=== PATIENT | female | born 1960 | race Caucasian/White ===

== ENCOUNTER 2016-08-09 06:41 | Day surgery (SDC) | payer OTHER ==
[2016-08-02 13:16] VITALS: BMI 47.0
--- NOTE | 2016-08-02 13:58 | PAT Medication Instructions ---
Service Date Aug 02, 2016. Current Home Medication List Albuterol Hfa (Ventolin Hfa), 2-4 PUFFS INH Q6H PRN for PRN Amlodipine (Norvasc), 5 MG PO QAM Cranberry-Vitamin C-Vitamin E (Cranberry), 1 TAB PO QPM Furosemide (Lasix), 20 MG PO PRN Hydrochlorothiazide (Hctz), 25 MG PO QAM Ibuprofen (Advil), 800 MG PO PRN Lorazepam (Ativan), 0.5 MG PO TID PRN for PRN Meclizine Hcl (Meclizine Hcl), 1 TAB PO TID PRN for RN Metformin Hcl (Glucophage), 500 MG PO BID Simvastatin (Zocor), 20 MG PO HS Medication Instructions For Your Scheduled Surgery Ibuprofen (Advil), 800 MG PO PRN (patient can check with surgeon for instructions) Meclizine Hcl (Meclizine Hcl), 1 TAB PO TID PRN for RN (not taking currently) - Hold the following medications starting today 08/02/16: Cranberry-Vitamin C-Vitamin E (Cranberry), 1 TAB PO QPM - Hold the following medications 48 hours prior to surgery: Metformin Hcl (Glucophage), 500 MG PO BID - Hold the following medications the morning of surgery: Hydrochlorothiazide (Hctz), 25 MG PO QAM Furosemide (Lasix), 20 MG PO PRN - Take the following medications the morning of surgery with a sip of water: Lorazepam (Ativan), 0.5 MG PO TID PRN for PRN Amlodipine (Norvasc), 5 MG PO QAM Albuterol Hfa (Ventolin Hfa), 2-4 PUFFS INH Q6H PRN for PRN (use if needed/ bring with you to hospital on day of surgery) - Take the following medications as scheduled the night before surgery: Simvastatin (Zocor), 20 MG PO HS Lorazepam (Ativan), 0.5 MG PO TID PRN for PRN Albuterol Hfa (Ventolin Hfa), 2-4 PUFFS INH Q6H PRN for PRN If you have any questions please call us at [phone] or [phone] ( [place]) or [phone]
[2016-08-02 14:47] LABS: BASO % 0.2 %; BASO ABS # 0.02 K/uL (0-0.2); COMPLETE YES; EOS % 1.8 %; HEMATOCRIT 49.3 % (37-47); IG% 0.3 %; LYMPH % 19.1 %; LYMPH ABS # 2.31 K/uL (1.2-3.4); MEAN CORPUSCULAR HEMOGLOBIN 30.9 pg (25-34); MEAN CORPUSCULAR HGB CONC 31.8 g/dl (32-36); MEAN PLATELET VOLUME 11.5 fL (7.4-10.4); MONO % 6.1 %; NEUT % 72.5 %; PLATELET COUNT 326 K/uL (130-400); RED BLOOD COUNT 5.08 M/uL (4.2-5.4); WHITE BLOOD COUNT 12.08 K/uL (4.8-10.8)
[2016-08-02 15:08] LABS: BUN/CREATININE RATIO 12.9 (10-20); CALCIUM 9.1 mg/dl (8.5-10.1); CREATININE 0.8 mg/dl (0.60-1.20); POTASSIUM 4.1 mmol/L (3.5-5.1)
[~2016-08-09] VITALS: Ht 172.7 cm; Wt 139.6 kg
[~2016-08-09 06:41] MED LIST: AMLO-110 PO; CEFAZOLIN 3000 MG/65 ML D5W IV SCH; CRAN1CAP15 PO; FURO-85 PO; GLC/500 PO; HYDR25TA4 PO; IBUP-1050 PO; LACTATED RINGER'S 1000ML 1,000 ML IV SCH; LORA-741 PO; MECL1TAB42 PO; SIMV20TA2 PO; VNTHFA/IN INH
[2016-08-09 06:48] VITALS: BP 145/89; PULSE 89; TEMP 37; O2SAT 95; Ht 172.7 cm; Wt 139.6 kg
[2016-08-09] MEDS ORDERED: ATROPINE SULFATE 0.1 MG/ML 5ML SYR IV PRN ×2 (08:00→10:15)
[2016-08-09] MEDS ORDERED: LABETALOL HCL IV 5 MG/ML 20ML IV PRN ×2 (08:00→10:15)
[2016-08-09] MEDS ORDERED: ONDANSETRON INJ 2 MG/ML 2 ML VIAL IV PRN ×3 (08:00→10:15)
--- NOTE | 2016-08-09 08:16 | History & Physical Bridge Note ---
H&P Re-Evaluation Bridge Note: I have examined the patient, reviewed the History & Physical and in the interval since the performance of the History & Physical I have noted the following changes of clinical significance: No changes noted
[2016-08-09] MEDS ORDERED: MIDAZOLAM HCL 1 MG/ML 2ML VIAL ONE (08:17)
[2016-08-09] MEDS ORDERED: FENTANYL CITRATE INJ 50 MCG/1 ML 2 ML VIAL ONE ×2 (08:17→09:26)
[2016-08-09] MEDS ORDERED: LIDOCAINE HCL 1% 20 ML VIAL ONE (08:20)
[2016-08-09] MEDS ORDERED: BUPIVACAINE 0.5 % 5 MG/1 ML MPF 30ML VIAL ONE (08:20)
[2016-08-09] MEDS ORDERED: SODIUM CHLORIDE 0.9% 1000ML 1,000 ML IV SCH (08:30)
[2016-08-09] MEDS ORDERED: PROPOFOL IV EMULSION 10 MG/ML 20 ML VIAL IV ONE (09:17)
[2016-08-09] MEDS ORDERED: LIDOCAINE HCL 2% 2 ML VIAL (20MG/ML) ONE (09:18)
[2016-08-09] MEDS ORDERED: NEOSTIGMINE METHYLSULFATE 5 MG/5 ML SYR ONE (09:18)
[2016-08-09] MEDS ORDERED: ROCURONIUM BROMIDE 10 MG/ML 5 ML VIAL ONE (09:18)
[2016-08-09] MEDS ORDERED: GLYCOPYRROLATE INJ 0.2 MG/ML VIAL ONE (09:18)
[2016-08-09] MEDS ORDERED: ONDANSETRON INJ 2 MG/ML 2 ML VIAL ONE (09:18)
[2016-08-09] MEDS ORDERED: ALBUTEROL HFA INHALER 8.5 GM INH ONE (09:24)
[2016-08-09] MEDS ORDERED: PHENYLEPHRINE HCL INJ 10 MG/ML VIAL ONE (09:33)
[2016-08-09] MEDS ORDERED: FENTANYL CITRATE INJ 50 MCG/1 ML 2 ML VIAL IV PRN (10:15)
--- NOTE | 2016-08-09 10:18 | [facility] Post Operative Brief Note ---
Immediate Operative Summary Operative Date Aug 09, 2016. Pre-Operative Diagnosis umbilical hernia Post-Operative Diagnosis umbilical hernia Procedure(s) Performed Umbilical Hernia Repair Surgeon Dr Hema Zavala Loss Prevention/Safety District Manager Surgeon(s) Steven GERBERS Estimated Blood Loss 10ML Findings See dictation Specimens A. hernia sac B. Omentum Drains None Anesthesia General Complication(s) None Disposition Recovery Room / PACU
--- NOTE | 2016-08-09 10:23 | Discharge Instructions ---
Discharge Instructions Date of Service Aug 09, 2016. Admission Reason for Admission: Umbilibal Hernia Discharge Discharge Diagnosis / Problem: Same Discharge Goals Goal(s): Decrease discomfort Activity Recommendations Activity Limitations: per Instructions/Follow-up section Lifting Limitations: no more than 10 pounds (for 6 weeks) Shower/Bathe: tomorrow . Instructions / Follow-Up Instructions / Follow-Up ACTIVITY RECOMMENDATIONS: * Walk as much as possible. * No heavy lifting (>10 lbs.) for 2 weeks. SPECIAL CARE INSTRUCTIONS: * Ice to hernia repair site on and off until bedtime tonight. * May shower in 24 hours. Let water run over area and pat dry. * Leave steri strips on for one week. * Call the surgeon's office with any questions or concerns - (ex. temperature higher than 101 degrees F, excessive bleeding or pain). MEDICATIONS: Resume previous medications unless instructed otherwise by your surgeon. * Ibuprofen 600 mg every 6 hours with food * Analgesics already at home FOLLOW UP VISIT: If not already scheduled, please call the office to schedule a two week follow- up appointment. Office number Current Hospital Diet Patient's current hospital diet: Discharge Diet Recommended Diet: Regular Diet Procedures Procedures Performed: Umbilical Hernia Repair Pending Studies Studies pending at discharge: no Medical Emergencies . Who to Call and When: Medical Emergencies: If at any time you feel your situation is an emergency, please call 911 immediately. . Non-Emergent Contact Non-Emergency issues call your: Primary Care Provider, Surgeon Call Non-Emergent contact if: your pain is worsening, wound has increased redness, wound has increased pain . "Provider Documentation" section prepared by Hema Zavala. . VTE Core Measure Inpt VTE Proph given/why not?: Treatment not indicated
[2016-08-09] MEDS ORDERED: OXYCODONE/ACETAMINOPHEN 5-325 TAB PO PRN (10:30)
[2016-08-09] MEDS ORDERED: ALBUTEROL 0.083% NEBU SOLN 3 ML VIAL INH STA (10:45)
[2016-08-09] MEDS: FENTANYL CITRATE INJ 50 MCG/1 ML 2 ML VIAL IV PRN ×3 (10:46→11:26)
[2016-08-09 11:00] VITALS: PULSE 92; O2SAT 93
[2016-08-09 11:50] VITALS: BP 121/64; PULSE 92; TEMP 36.7; O2SAT 92
--- NOTE | 2016-08-09 12:08 | Anesthesiology Progress Note ---
Anesthesia Post Op Note Date & Time Aug 09, 2016 at 12:07 Vital Signs Pain Intensity: 4 Vital Signs Past 12 Hours Date Time Temp Pulse Resp B/P (MAP) Pulse Ox O2 Delivery O2 Flow Rate FiO2 08/09/16 11:41 138/65 08/09/16 11:36 125/75 08/09/16 11:32 92 16 93 08/09/16 11:32 92 16 08/09/16 11:31 36.6 08/09/16 11:31 116/66 08/09/16 11:30 85 16 93 08/09/16 11:30 86 16 08/09/16 11:26 131/64 08/09/16 11:25 93 16 08/09/16 11:25 94 16 93 08/09/16 11:24 83 13 08/09/16 11:24 83 13 92 08/09/16 11:21 126/59 08/09/16 11:19 90 16 08/09/16 11:19 90 16 92 08/09/16 11:16 137/65 08/09/16 11:14 90 16 08/09/16 11:14 89 16 89 08/09/16 11:13 90 16 87 08/09/16 11:13 90 16 08/09/16 11:11 132/60 08/09/16 11:08 87 16 08/09/16 11:08 87 16 95 08/09/16 11:06 144/77 08/09/16 11:03 89 13 08/09/16 11:03 89 13 94 08/09/16 11:01 150/71 08/09/16 11:00 92 18 93 Mask 6.0 08/09/16 10:58 93 24 08/09/16 10:58 94 24 93 08/09/16 10:56 134/79 08/09/16 10:53 94 22 93 08/09/16 10:53 94 22 08/09/16 10:51 161/67 08/09/16 10:48 97 32 92 08/09/16 10:48 97 32 08/09/16 10:47 96 31 08/09/16 10:47 96 31 94 08/09/16 10:46 161/68 08/09/16 10:42 93 23 95 08/09/16 10:42 93 23 08/09/16 10:41 152/66 6/12/17 10:37 95 29 95 08/09/16 10:37 95 29 08/09/16 10:36 158/71 08/09/16 10:35 94 29 96 08/09/16 10:35 94 29 08/09/16 10:31 174/84 08/09/16 10:30 97 22 90 08/09/16 10:30 98 22 08/09/16 10:26 179/91 08/09/16 10:25 36.5 96 18 179/91 92 Mask 13 08/09/16 10:25 95 31 90 08/09/16 10:25 96 31 08/09/16 06:48 37 89 145/89 (107) 95 Room Air Notes Mental Status: alert / awake / arousable, participated in evaluation Pt Amnestic to Procedure: Yes Nausea / Vomiting: adequately controlled Pain: adequately controlled Airway Patency, RR, SpO2: stable & adequate BP & HR: stable & adequate Hydration State: stable & adequate Anesthetic Complications: no major complications apparent
[2016-08-09 12:20] VITALS: BP 129/70; PULSE 88; TEMP 36.5; O2SAT 93
[2016-08-09] MEDS ORDERED: IBUPROFEN 600 MG TAB PO SCH (14:00)
--- NOTE | 2016-08-09 17:23 | OPERATIVE REPORT ---
DATE OF OPERATION: 08/09/2016 PREOPERATIVE DIAGNOSIS: Ventral/umbilical hernia. POSTOPERATIVE DIAGNOSIS: Same. PROCEDURE: Repair of ventral/umbilical hernia. SURGEON: Dr. Hema Zavala. FINDINGS: The patient had a ventral hernia that was more beneath her transverse incision below the umbilicus used for her laparoscopy. This did not appear to be a classic umbilical hernia. The hernia sac was size of a baseball. It contained a large amount of omentum. There was no bowel within the sac. There were no other defects identified. The hernia defect measured 2.5 cm. TECHNIQUE: The patient was given a general anesthetic and the area was prepped and draped in the usual sterile fashion. The area of the hernia had been previously marked. A transverse incision was made below the umbilicus incorporating the scar from the previous incision, carried down through the skin and subcutaneous tissue, where the hernia sac was easily identified. The hernia sac was then off the overlying skin and away from the surrounding subcutaneous tissue using blunt, sharp and cautery dissection where appropriate. This dissection was easily carried down on the left side and I was able to dissect it off the anterior surface of the fascia and identify the edge of the fascial defect on that side. I then was able to work inferiorly and towards the right and eventually superiorly freeing the sac down to the fascial defect edge. I was able to open the hernia sac. I could not reduce the large amount of omentum completely. I then removed some of the omental tissue using a clamp-clamp divide and ligate technique using 2-0 Vicryl ties. The remainder of the omentum was able to be reduced back into the abdomen with ease. I then was able to further dissect the sac freely off the anterior surface of the fascia. Once that was completed, I was then able to establish a plane between the peritoneum and the fascial edge around the entire circumference of the defect. I was then able to undermine the fascia for a distance of at least 4 cm around the entire circumference of the defect using cautery and blunt dissection. A 12.5-cm round Surgimesh was then placed in a preperitoneal/retrofascial position. It was secured to the undersurface of the fascia using 0 PDS horizontal mattress sutures. The fascia was closed with a running #1 PDS. Hemostasis was obtained in the subcutaneous tissue using cautery. The subcutaneous tissue was approximated using interrupted 2-0 Vicryl. The superficial subcutaneous tissue was closed with running 3-0 Vicryl and skin was closed with 4-0 Monocryl in a running subcuticular fashion. The skin was anesthetized with 0.5% Marcaine. The skin was cleansed, dried, benzoin placed, and Steri-Strips applied. A cotton ball placed in the umbilicus and an Op-Site over that. ESTIMATED BLOOD: 10 mL. Sponge, needle and instrument counts were correct prior to closure. The patient tolerated the surgical procedure without complication and was transferred to recovery. I attest to the content of the Intraoperative Record and any orders documented therein. Any exception s are noted below.
[2016-08-12] MEDS ORDERED: AMOX1TAB43 PO (10:37)
== END 2016-08-09 12:44 | disposition home or self-care (01) ==
LOC: C.ACU 06:41
PROVIDERS: ATTEND Surgery
DX: K42.9 Umbilical hernia without obstruction or gangrene (principal); E11.9 Type 2 diabetes mellitus without complications; I10 Essential (primary) hypertension; J44.9 Chronic obstructive pulmonary disease, unspecified; Z88.2 Allergy status to sulfonamides; Z90.89 Acquired absence of other organs; Z88.1 Allergy status to other antibiotic agents; F17.200 Nicotine dependence, unspecified, uncomplicated; Z68.42 Body mass index [BMI] 45.0-49.9, adult; E66.01 Morbid (severe) obesity due to excess calories

== ENCOUNTER 2016-08-10 00:42 | Inpatient (IN) | payer OTHER ==
[2016-08-10] VITALS (10 sets, daily range): BP systolic 104–143; BP diastolic 55–90; PULSE 77–96; TEMP 36.7–36.9; O2SAT 92–95; Ht 172.7 cm; Wt 143.7 kg
[~2016-08-10] VITALS: Ht 172.7 cm; Wt 143.7 kg
[~2016-08-10 00:42] MED LIST changes: -CEFAZOLIN 3000 MG/65 ML D5W IV SCH; -LACTATED RINGER'S 1000ML 1,000 ML IV SCH
[2016-08-10] MEDS ORDERED: ALBUT/IPRATROP 3MG/0.5MG NEB 3 ML VIAL INH STA (00:46)
[2016-08-10] MEDS ORDERED: SODIUM CHLORIDE 0.9% 1000ML 1,000 ML IV STA ×2 (00:46)
[2016-08-10] MEDS ORDERED: DEXAMETHASONE SOD INJ 10 MG/ML VIAL IV ONE (01:00)
[2016-08-10] MEDS ORDERED: DAPTOMYCIN IV STA (01:21)
[2016-08-10] MEDS ORDERED: SODIUM CHLORIDE 0.9% IV STA (01:21)
[2016-08-10] MEDS ORDERED: PIPERACILLIN/TAZOBACTAM 4.5 GM/100ML D5W IV STA (01:21)
[2016-08-10 01:24] LABS: BASO % 0.1 %; BASO ABS # 0.02 K/uL (0-0.2); COMPLETE YES; EOS % 0.4 %; HEMATOCRIT 45.8 % (37-47); IG% 0.2 %; LYMPH % 11.1 %; LYMPH ABS # 1.83 K/uL (1.2-3.4); MEAN CORPUSCULAR HGB CONC 31.2 g/dl (32-36); MEAN PLATELET VOLUME 10.9 fL (7.4-10.4); MONO % 5.8 %; NEUT % 82.4 %; PLATELET COUNT 304 K/uL (130-400); RED BLOOD COUNT 4.77 M/uL (4.2-5.4); WHITE BLOOD COUNT 16.56 K/uL (4.8-10.8)
[2016-08-10 01:45] LABS: ALT/SGPT 32 U/L (12-78); BLOOD UREA NITROGEN 13 mg/dl (7-18); BUN/CREATININE RATIO 13.3 (10-20); CALCIUM 8.5 mg/dl (8.5-10.1); CARBON DIOXIDE 27 mmol/L (21-32); CHLORIDE 102 mmol/L (98-107); CREATININE 0.97 mg/dl (0.60-1.20); GLUCOSE 165 mg/dl (70-99); POTASSIUM 4.4 mmol/L (3.5-5.1); SODIUM 138 mmol/L (136-145)
[2016-08-10 01:46] LABS: VEN BLD GAS O2 SATURATION 83.2 %; VEN BLOOD GAS BASE EXCESS 3.4 mmol/L
[2016-08-10 01:49] LABS: ALB/GLOB RATIO 0.8 (0.9-2); ALKALINE PHOSPHATASE 97 U/L (45-117); AST/SGOT 36 U/L (15-37)
[2016-08-10 01:57] LABS: URINE APPEARANCE CLOUDY (CLEAR); URINE COLOR ORANGE; URINE EPITHELIAL CELL AUTO >30 /lpf (0-5); URINE NITRITE POS (NEG); URINE PH 5.5 (4.5-7.5); URINE SPECIFIC GRAVITY 1.033 (1.000-1.030); UROBILINOGEN NEG (NEG); ZZUR CULT IF INDIC CLEAN CATCH YES
[2016-08-10 02:04] LABS: MANUAL MICROSCOPIC REQUIRED? NO; REVIEW REQ? YES; URINE BILIRUBIN 1+ (NEG)
--- NOTE | 2016-08-10 03:06 | EMERGENCY ROOM VISIT NOTE ---
History First contact with patient: 00:41 Chief Complaint: SHORTNESS OF BREATH Stated Complaint: SHORT OF BREATH Nursing Triage Summary: Pt brought in by EMS. Pt complains of fever and SOB this evening. Pt had umbilical hernia repaired by Dr Zavala this am. History of Present Illness The patient is a 56 year old female who presents to the Emergency Room with complaints of cough, shortness of breath and fever for the past few hours. Patient had hernia repair earlier today. Patient is a smoker for 40+ years. Patient states no complications with the surgery. Patient took Tylenol a few hours ago. Patient denies chest pain, vomiting, diarrhea, urinary symptoms, sore throat, headache, numbness, tingling. Review of Systems See HPI for pertinent positives & negatives. A total of 10 systems reviewed and were otherwise negative. Past Medical/Surgical History Diabetes, hypertension, hyperlipidemia, hernia repair Social History Smoking Status: Current Every Day Smoker Drug Use: none Marital Status: Housing Status: lives with family Current/Historical Medications Scheduled Amlodipine (Norvasc), 5 MG PO QAM Cranberry-Vitamin C-Vitamin E (Cranberry), 1 TAB PO QPM Furosemide (Lasix), 20 MG PO PRN Hydrochlorothiazide (Hctz), 25 MG PO QAM Ibuprofen (Advil), 800 MG PO PRN Metformin Hcl (Glucophage), 500 MG PO BID Simvastatin (Zocor), 20 MG PO HS Scheduled PRN Albuterol Hfa (Ventolin Hfa), 2-4 PUFFS INH Q6H PRN for PRN Lorazepam (Ativan), 0.5 MG PO TID PRN for PRN Meclizine Hcl (Meclizine Hcl), 1 TAB PO TID PRN for RN Allergies Coded Allergies: Erythromycin (Unverified Allergy, Unknown, HIVES, 08/10/16) Naproxen (Unverified Allergy, Unknown, SEVERE HIVES,THROAT TIGHTENING, ) Sulfa Antibiotics (Unverified Allergy, Unknown, RASH, 08/10/16) Physical Exam Vital Signs Date Time Temp Pulse Resp B/P (MAP) Pulse Ox O2 Delivery O2 Flow Rate FiO2 08/10/16 02:42 82 18 116/72 96 Room Air 08/10/16 00:55 93 Room Air 08/10/16 00:52 77 08/10/16 00:48 87 Room Air 08/10/16 00:42 36.8 87 24 109/81 87 Room Air Physical Exam VITALS: Vitals are noted on the nurse's note and reviewed by myself. Vital signs hypoxic GENERAL: Pleasant female struggling to speak in full sentences SKIN: The skin was without rashes, erythema, edema, or bruising. There is no tenting of the skin. Capillary reflex less than 2 seconds. HEAD: Normocephalic atraumatic. EARS: External auditory canals clear, tympanic membranes pearly royal without erythema or effusion bilaterally. EYES: Pupils equal round and reactive to light and accommodation. Conjunctivae without injection, sclerae without icterus. Extraocular movements intact. NOSE: Patent, turbinates without inflammation or discharge. MOUTH: Mucous membranes moist. Pharynx without erythema or exudate. Uvula midline. Airway patent. Tongue does not deviate. NECK: Supple without nuchal rigidity. No lymphadenopathy. No thyromegaly. Cervical spine is nontender. No JVD. HEART: Regular rate and rhythm without murmurs gallops or rubs. LUNGS: Mild diffuse end expiratory wheezes, without rales or rhonchi. No dullness to percussion. No retractions or accessory muscle use. ABDOMEN: Positive bowel sounds x 4. Normal tympanic percussion. Soft, umbilical incision intact with out signs of infection, nontender, without masses or organomegaly. Mendoza sign negative. No guarding or rebound tenderness. MUSCULOSKELETAL: No muscle atrophy, erythema, or edema noted. NEURO: Patient was alert and oriented to person place and time. Normal sensation to light and sharp touch. No focal neurological deficits. Medical Decision & Procedures Laboratory Results 08/10/16 01:00 Red Blood Count 4.77, Mean Corpuscular Volume 96.0, Mean Corpuscular Hemoglobin 30.0, Mean Corpuscular Hemoglobin Concent 31.2, Mean Platelet Volume 10.9, Neutrophils (%) (Auto) 82.4, Lymphocytes (%) (Auto) 11.1, Monocytes (%) (Auto) 5.8, Eosinophils (%) (Auto) 0.4, Basophils (%) (Auto) 0.1, Neutrophils # (Auto) 13.64, Lymphocytes # (Auto) 1.83, Monocytes # (Auto) 0.96, Eosinophils # (Auto) 0.07, Basophils # (Auto) 0.02 08/10/16 01:00 Test 08/10/16 01:00 08/10/16 01:13 08/10/16 01:27 08/10/16 01:28 White Blood Count 16.56 K/uL (4.8-10.8) Red Blood Count 4.77 M/uL (4.2-5.4) Hemoglobin 14.3 g/dL (12.0-16.0) Hematocrit 45.8 % (37-47) Mean Corpuscular Volume 96.0 fL (80-100) Mean Corpuscular Hemoglobin 30.0 pg (25-34) Mean Corpuscular Hemoglobin Concent 31.2 g/dl (32-36) Platelet Count 304 K/uL (130-400) Mean Platelet Volume 10.9 fL (7.4-10.4) Neutrophils (%) (Auto) 82.4 % Lymphocytes (%) (Auto) 11.1 % Monocytes (%) (Auto) 5.8 % Eosinophils (%) (Auto) 0.4 % Basophils (%) (Auto) 0.1 % Neutrophils # (Auto) 13.64 K/uL (1.4-6.5) Lymphocytes # (Auto) 1.83 K/uL (1.2-3.4) Monocytes # (Auto) 0.96 K/uL (0.11-0.59) Eosinophils # (Auto) 0.07 K/uL (0-0.5) Basophils # (Auto) 0.02 K/uL (0-0.2) RDW Standard Deviation 51.6 fL (36.4-46.3) RDW Coefficient of Variation 14.6 % (11.5-14.5) Immature Granulocyte % (Auto) 0.2 % Immature Granulocyte # (Auto) 0.04 K/uL (0.00-0.02) Anion Gap 9.0 mmol/L (3-11) Est Creatinine Clear Calc Drug Dose 97.9 ml/min Estimated GFR () 75.7 Estimated GFR (Non- 65.3 BUN/Creatinine Ratio 13.3 (10-20) Calcium Level 8.5 mg/dl (8.5-10.1) Total Bilirubin 0.6 mg/dl (0.2-1) Aspartate Amino Transf (AST/SGOT) 36 U/L (15-37) Alanine Aminotransferase (ALT/SGPT) 32 U/L (12-78) Alkaline Phosphatase 97 U/L (45-117) Troponin I < 0.015 ng/ml (0-0.045) Total Protein 7.0 gm/dl (6.4-8.2) Albumin 3.0 gm/dl (3.4-5.0) Globulin 4.0 gm/dl (2.5-4.0) Albumin/Globulin Ratio 0.8 (0.9-2) Procalcitonin < 0.05 ng/ml (0-0.5) Bedside Lactic Acid Venous 2.89 mmol/L (0.90-1.70) Bedside Troponin I < 0.030 ng/ml (0-0.045) Venous Blood pH 7.48 (7.36-7.41) Venous Blood Partial Pressure CO2 37 mmHg (38.0-50.0) Venous Blood Partial Pressure O2 42 mmHg Venous Blood HCO3 27 mmol/L Venous Blood Oxygen Saturation 83.2 % Venous Blood Base Excess 3.4 mmol/L Test 08/10/16 01:43 Urine Color ORANGE Urine Appearance CLOUDY (CLEAR) Urine pH 5.5 (4.5-7.5) Urine Specific Sulphur 1.033 (1.000-1.030) Urine Protein 1+ (NEG) Urine Glucose (UA) TRACE (NEG) Urine Ketones TRACE (NEG) Urine Occult Blood NEG (NEG) Urine Nitrite POS (NEG) Urine Bilirubin 1+ (NEG) Urine Urobilinogen NEG (NEG) Urine Leukocyte Esterase TRACE (NEG) Urine WBC (Auto) 10-30 /hpf (0-5) Urine RBC (Auto) 0-4 /hpf (0-4) Urine Hyaline Casts (Auto) 10-30 /lpf (0-5) Urine Epithelial Cells (Auto) >30 /lpf (0-5) Urine Bacteria (Auto) 1+ (NEG) Urine Crystals CALCIUM OXALATE (NONE Urine Pathogenic Casts /lpf (0) Medications Administered Medications (Trade) Dose Ordered Sig/Jess Route Start Time Stop Time Status Last Admin Dose Admin Albuterol/ Ipratropium (Duoneb) 3 ml NOW STAT INH 08/10/16 00:46 08/10/16 00:49 DC 08/10/16 01:25 3 ML Sodium Chloride 1,000 ml @ 999 mls/hr Q1H1M STAT IV 08/10/16 00:46 08/10/16 01:46 DC 08/10/16 00:46 999 MLS/HR Sodium Chloride 1,000 ml @ 125 mls/hr Q8H STAT IV 08/10/16 00:46 08/10/16 08:45 08/10/16 00:46 125 MLS/HR Dexamethasone Sodium Phosphate (Decadron Inj) 10 mg NOW ONCE IV 08/10/16 01:00 08/10/16 01:01 DC 08/10/16 01:25 10 MG Piperacillin Sod/ Tazobactam Sod (Zosyn Iv) 4.5 gm NOW STAT IV 08/10/16 01:21 08/10/16 01:23 DC 08/10/16 02:25 4.5 GM Daptomycin 862 mg/ Sodium Chloride 67.24 ml @ 100 mls/hr NOW STAT IV 08/10/16 01:21 08/10/16 02:01 DC 08/10/16 01:41 100 MLS/HR ED Course Prior records/ancillary studies reviewed. Triage Nursing notes reviewed. Additional history obtained from family. The patient's history was concerning for fever. Differential diagnosis: Etiologies such as postsurgical complication, atelectasis, viral syndrome, otitis, pharyngitis, pneumonia, influenza, meningitis, urinary tract infection, sepsis, bacteremia, as well as others were entertained. Physical examination: Patient is alert and working to breathe ER treatment provided: IV fluids, Nebulizer, steroids, Zosyn, daptomycin On reassessment the patient felt better. Diagnostics interpreted by me: ECG: Normal sinus, normal intervals, no acute ST-T wave changes. Impression normal sinus rhythm interpreted by myself The labs revealed leukocytosis, elevated lactic acid. Urine concerning for infection and sent for culture Imaging studies: Chest x-ray with no acute consolidation, pneumothorax or free air per my interpretation Consultation: A consultation was placed with hospitalist, Dr. Lofton. The case was discussed and diagnostics were reviewed. The patient was evaluated in the ER for further treatment. This appears to be consistent with fever with UTI who is postop day 1. Patient will be evaluated by medicine for possible admission. She is a leukocytosis and elevated lactic acid. Urine was concerning for infection and sent for culture. She was started on antibiotics. She'll be evaluated by medicine. By the evaluation outlined above emergent etiologies such as otitis, pharyngitis, pneumonia, meningitis, as well as others were deemed relatively unlikely. The pt informed about the findings as listed above. All questions were answered and pleased with the treatment. Case reviewed with my attending Medical Decision As above Impression Primary Impression: SIRS (systemic inflammatory response syndrome) Additional Impressions: UTI (urinary tract infection) Fever Hypoxemia Departure Information Dispostion Being Evaluated By Hospitalist Condition FAIR Referrals Dez Horton M.D. (PCP) Patient Instructions My [facility] Problem Qualifiers
[2016-08-10] MEDS ORDERED: ACETAMINOPHEN 325 MG TAB PO PRN (03:45)
[2016-08-10] MEDS ORDERED: POLYETHYLENE (MIRALAX) 17 GM PACK PO PRN (03:45)
[2016-08-10] MEDS ORDERED: MAGNESIUM HYDROXIDE SUSP 30 ML UDC PO PRN (03:45)
[2016-08-10] MEDS ORDERED: ALUMINUM/MAGNESIUM/SIMETH (MAALOX MAX) 30 ML UDC PO PRN (03:45)
[2016-08-10] MEDS ORDERED: IBUPROFEN 200 MG TAB PO PRN (03:45)
[2016-08-10] MEDS ORDERED: LORAZEPAM 0.5 MG TAB PO PRN (03:45)
[2016-08-10] MEDS ORDERED: ONDANSETRON INJ 2 MG/ML 2 ML VIAL IV PRN (03:45)
--- NOTE | 2016-08-10 05:17 | History and Physical ---
History & Physical Date & Time of Service: Aug 10, 2016 at 04:57 Chief Complaint: Short Of Breath Primary Care Physician: Dez Horton M.D. History of Present Illness Source: patient, family, hospital records This is a 56 year old female with a PMH of DM2, tobacco use disorder, HTN, HLD - was in the hospital for day surgery for an inguinal hernia repair on August 09 - she went home, took some Percocet, went to sleep, when she woke up in the afternoon/evening time, she felt chills. States she became really short of breath and could not take a deep breath in, so she presented to the ER. Denies nausea/vomiting. Denies chest pain; denies leg pain. Denies palpitations. On presentation, labs performed showing high white count; CXR - no acute findings; UA dirty - was given IVFs, antibiotics, and nebulizers and she felt better. Social History Smoking Status: Current Every Day Smoker Drug Use: none Marital Status: Allergies Coded Allergies: Erythromycin (Unverified Allergy, Unknown, HIVES, 08/10/16) Naproxen (Unverified Allergy, Unknown, SEVERE HIVES,THROAT TIGHTENING, ) Sulfa Antibiotics (Unverified Allergy, Unknown, RASH, 08/10/16) Home Medications Scheduled Amlodipine (Norvasc), 5 MG PO QAM Cranberry-Vitamin C-Vitamin E (Cranberry), 1 TAB PO QPM Furosemide (Lasix), 20 MG PO PRN Hydrochlorothiazide (Hctz), 25 MG PO QAM Ibuprofen (Advil), 800 MG PO PRN Metformin Hcl (Glucophage), 500 MG PO BID Simvastatin (Zocor), 20 MG PO HS Scheduled PRN Albuterol Hfa (Ventolin Hfa), 2-4 PUFFS INH Q6H PRN for PRN Lorazepam (Ativan), 0.5 MG PO TID PRN for PRN Meclizine Hcl (Meclizine Hcl), 1 TAB PO TID PRN for general foreman of Systems Constitutional: + fever, + chills, + weakness, + fatigue, No sweats, No weight loss Respiratory: + shortness of breath, No cough, No sputum, No wheezing, No dyspnea on exertion, No hemoptysis Cardiovascular: No chest pain, No edema, No palpitations Abdomen: + pain (recent surgery), No nausea, No vomiting, No diarrhea Musculoskeletal: No joint pain, No muscle pain, No swelling, No calf pain Genitourinary - Female: No dysuria, No urinary frequency, No urinary urgency, No urinary incontinence, No urinary retention, No hematuria Neurologic: + weakness, No paralysis, No numbness/tingling, No vertigo, No balance problems Psychiatric: No depression symptoms, No anxiety Hematologic / Lymphatic: No abnormal bleeding/bruising Integumentary: No rash Allergic / Immunologic: No environmental allergies, No seasonal allergies Physical Exam Vital Signs Date Time Temp Pulse Resp B/P (MAP) Pulse Ox O2 Delivery O2 Flow Rate FiO2 08/10/16 04:30 98 20 134/85 96 Room Air 08/10/16 04:28 97 08/10/16 02:42 82 18 116/72 96 Room Air 08/10/16 00:55 93 Room Air 08/10/16 00:52 77 08/10/16 00:48 87 Room Air 08/10/16 00:42 36.8 87 24 109/81 87 Room Air General Appearance: no apparent distress, + obese Head: normocephalic, atraumatic Eyes: normal inspection ENT: hearing grossly normal Respiratory/Chest: chest non-tender, lungs clear, normal breath sounds, no respiratory distress, no accessory muscle use Cardiovascular: regular rate, rhythm, no edema, no gallop, no JVD, no murmur, normal peripheral pulses Abdomen/GI: normal bowel sounds, soft, + tenderness Extremities/Musculoskelatal: normal capillary refill, no pedal edema Neurologic/Psych: no motor/sensory deficits, alert, normal mood/affect Skin: normal color Lymphatic: no adenopathy Diagnostics Laboratory Results Results Past 24 Hours Test 08/10/16 01:00 08/10/16 01:13 08/10/16 01:27 08/10/16 01:28 Range/Units White Blood Count 16.56 4.8-10.8 K/uL Red Blood Count 4.77 4.2-5.4 M/uL Hemoglobin 14.3 12.0-16.0 g/dL Hematocrit 45.8 37-47 % Mean Corpuscular Volume 96.0 80-100 fL Mean Corpuscular Hemoglobin 30.0 25-34 pg Mean Corpuscular Hemoglobin Concent 31.2 32-36 g/dl Platelet Count 304 130-400 K/uL Mean Platelet Volume 10.9 7.4-10.4 fL Neutrophils (%) (Auto) 82.4 % Lymphocytes (%) (Auto) 11.1 % Monocytes (%) (Auto) 5.8 % Eosinophils (%) (Auto) 0.4 % Basophils (%) (Auto) 0.1 % Neutrophils # (Auto) 13.64 1.4-6.5 K/uL Lymphocytes # (Auto) 1.83 1.2-3.4 K/uL Monocytes # (Auto) 0.96 0.11-0.59 K/uL Eosinophils # (Auto) 0.07 0-0.5 K/uL Basophils # (Auto) 0.02 0-0.2 K/uL RDW Standard Deviation 51.6 36.4-46.3 fL RDW Coefficient of Variation 14.6 11.5-14.5 % Immature Granulocyte % (Auto) 0.2 % Immature Granulocyte # (Auto) 0.04 0.00-0.02 K/uL Sodium Level 138 136-145 mmol/L Potassium Level 4.4 3.5-5.1 mmol/L Chloride Level 102 98-107 mmol/L Carbon Dioxide Level 27 21-32 mmol/L Anion Gap 9.0 3-11 mmol/L Blood Urea Nitrogen 13 7-18 mg/dl Creatinine 0.97 0.60-1.20 mg/dl Est Creatinine Clear Calc Drug Dose 97.9 ml/min Estimated GFR () 75.7 Estimated GFR (Non- 65.3 BUN/Creatinine Ratio 13.3 10-20 Random Glucose 165 70-99 mg/dl Calcium Level 8.5 8.5-10.1 mg/dl Total Bilirubin 0.6 0.2-1 mg/dl Aspartate Amino Transf (AST/SGOT) 36 15-37 U/L Alanine Aminotransferase (ALT/SGPT) 32 12-78 U/L Alkaline Phosphatase 97 45-117 U/L Troponin I < 0.015 0-0.045 ng/ml Total Protein 7.0 6.4-8.2 gm/dl Albumin 3.0 3.4-5.0 gm/dl Globulin 4.0 2.5-4.0 gm/dl Albumin/Globulin Ratio 0.8 0.9-2 Procalcitonin < 0.05 0-0.5 ng/ml Bedside Lactic Acid Venous 2.89 0.90-1.70 mmol/L Bedside Troponin I < 0.030 0-0.045 ng/ml Venous Blood pH 7.48 7.36-7.41 Venous Blood Partial Pressure CO2 37 38.0-50.0 mmHg Venous Blood Partial Pressure O2 42 mmHg Venous Blood HCO3 27 mmol/L Venous Blood Oxygen Saturation 83.2 % Venous Blood Base Excess 3.4 mmol/L Test 08/10/16 01:43 Range/Units Urine Color ORANGE Urine Appearance CLOUDY CLEAR Urine pH 5.5 4.5-7.5 Urine Specific [place] 1.033 1.000-1.030 Urine Protein 1+ NEG Urine Glucose (UA) TRACE NEG Urine Ketones TRACE NEG Urine Occult Blood NEG NEG Urine Nitrite POS NEG Urine Bilirubin 1+ NEG Urine Urobilinogen NEG NEG Urine Leukocyte Esterase TRACE NEG Urine WBC (Auto) 10-30 0-5 /hpf Urine RBC (Auto) 0-4 0-4 /hpf Urine Hyaline Casts (Auto) 10-30 0-5 /lpf Urine Epithelial Cells (Auto) >30 0-5 /lpf Urine Bacteria (Auto) 1+ NEG Urine Crystals CALCIUM OXALATE NONE PRSENT Urine Pathogenic Casts 0 /lpf Microbiology Results 08/10/16 Blood Culture, Received Pending 08/10/16 Blood Culture, Received Pending 08/10/16 Urine Culture, Received Pending CXR normal Normal EKG Impression Assessment and Plan This is a 56 year old female with a PMH of DM2, tobacco use disorder, HTN, HLD and recent umbilical hernia repair presented with fevers/chills, shortness of breath Urinary Tract Infection patient presents with fevers/chills leukocytosis - likely both stress and infectious related UA = dirty culture pending started on Rocephin Shortness of Breath/Hypoxia in the setting of Tobacco Use Disorder CXR - no infection noted hypoxia on presentation, but now saturating well without supplemental oxygen possibly related to atelectasis? was given nebulizer treatment, which improved symptoms will add incentive spirometry - recent surgery has been smoking for 40 years; up to 1PPD no official diagnosis of COPD; will need PFTs as outpatient when stable for now, no steroids, no wheezing noted on exam Recent Umbilical Hernia Repair wound looks fine, no erythema doing well post-operatively, monitor for pain DM2 hold oral agents Ha1c = 6.5% monitor BSGs HTN blood pressure stable continue Norvasc DVT ppx subq heparin FULL CODE VTE Prophylaxis VTE Risk Assessment Done? Y/N: Yes Risk Level: Moderate
[2016-08-10] MEDS ORDERED: CEFTRIAXONE SOD INJ 1 GM in DEXTROSE 5% ADD-VANTAGE 50ML 50 ML IV SCH (06:00)
--- NOTE | 2016-08-10 06:48 | DIAGNOSTIC IMAGING REPORT ---
CHEST ONE VIEW PORTABLE CLINICAL HISTORY: Sepsis dyspnea COMPARISON STUDY: No previous studies for comparison. FINDINGS: The bones soft tissues and hemidiaphragms are normal. The cardiomediastinal silhouette is normal. The lungs are clear. The pulmonary vasculature is normal. IMPRESSION: Negative chest. Electronically signed by: Hema Wills M.D. 08/10/2016 6:47 AM Dictated Date/Time: 08/10/2016 6:46 AM
[2016-08-10 07:06] LABS: HEMATOCRIT 44.6 % (37-47); MEAN CORPUSCULAR HGB CONC 31.6 g/dl (32-36); MEAN PLATELET VOLUME 11.2 fL (7.4-10.4); PLATELET COUNT 257 K/uL (130-400); RED BLOOD COUNT 4.55 M/uL (4.2-5.4); WHITE BLOOD COUNT 15.08 K/uL (4.8-10.8)
[2016-08-10 07:13] LABS: PROTHROMBIN TIME (PATIENT) 10.9 SECONDS (9.0-12.0)
[2016-08-10] MEDS: ALBUT/IPRATROP 3MG/0.5MG NEB 3 ML VIAL INH SCH ×4 (07:22→19:12)
[2016-08-10] MEDS: SODIUM CHLORIDE 0.9% 1000ML 1,000 ML IV SCH ×3 (07:44→21:15)
[2016-08-10] MEDS ORDERED: DEXTROSE 50% 50 ML SYR IV PRN (09:00)
[2016-08-10] MEDS ORDERED: GLUCOSE 40% GEL 15 GM TUBE PO PRN (09:00)
[2016-08-10] MEDS ORDERED: GLUCOSE 10 TABS/TUBE PO PRN (09:00)
[2016-08-10] MEDS ORDERED: GLUCAGON FOR INJ 1 MG VIAL SQ PRN (09:00)
[2016-08-10] MEDS: AMLODIPINE BESYLATE 5 MG TAB PO SCH (09:04)
[2016-08-10] MEDS: HEPARIN SOD 5000 UNIT/0.5 ML CARP SQ SCH ×3 (09:11→23:43)
[2016-08-10] MEDS: POLYETHYLENE (MIRALAX) 17 GM PACK PO SCH (10:02)
[2016-08-10] MEDS: INSULIN ASPART 100 UNITS/ML 3 ML PEN SC SCH ×3 (13:19→21:31)
[2016-08-10] MEDS ORDERED: PIPERACILL/TAZOBAC IV 4.5 GM in DEXTROSE 5% 100ML IV ONE (17:00)
[2016-08-10] MEDS ORDERED: PIPERACILL/TAZOBAC CONSULT ACTIVE PRN (17:00)
--- NOTE | 2016-08-10 17:00 | Progress Note ---
Internal Med Progress Note Date of Service: Aug 10, 2016. Provider Documentation: SUBJECTIVE: feels fine , afebrile , no nausea , no abdominal pain tolerating diet denies of any symptom wants to know when she can go home OBJECTIVE: Vital Signs-as noted below Exam: General- no sign of distress Eyes-sclera non icteric Lungs-CTA Heart-regular S1/s2 Abdomen-soft, umbilical hernia repair site healing well , no drainage , minimum tenderness , bowel sound diminished Extremities-no lower ext edema Neuro-no focal neurological deficit Lab data as noted below. ASSESSMENT & PLAN: SEPSIS : possible due to Urinary Tract Infection met criteria on admission -fever /elevated lactic acid /leukocytosis UA grossly positive no evidence of infection in recent umbilical hernia repair Cxray shows no evidence of infection blood and urine culture ordered -report pending pt is continued with IV fluids , remains stable hemodynamically Lactic acid remains persistently elevated > 2 Abx changed to Zosyn will order CT abdomen /pelvis to R/o other source of infection as pt had recent hernia repair Recent Umbilical Hernia Repair s/p Umbilical Hernia repair on Tuesday08/09/[address] Zavala wound looks fine, no erythema D/w Surgery Dr Zavala -pt is evaluated by him on the floor pt had very simple uncomplicated hernia repair Laparoscopically no evidence of infection or post op complication recommend to cont ABx IVF CT abdomen /pelvis with contrast ordered for ongoing lactic acidosis Shortness of Breath/Hypoxia in the setting of Tobacco Use Disorder CXR - no infection noted no symptom at present in room air was given nebulizer treatment, which improved symptoms will add incentive spirometry - recent surgery has been smoking for 40 years; up to 1PPD no official diagnosis of COPD; will need PFTs as outpatient when stable DM2 hold oral agents-Metformin ( persistent lactic acidosis ) Ha1c = 6.5% monitor BSGs HTN blood pressure stable continue Norvasc DVT ppx subq heparin DISPOSITION Discharge home when medically stable Vital Signs: Date Time Temp Pulse Resp B/P (MAP) Pulse Ox O2 Delivery O2 Flow Rate FiO2 08/10/16 15:30 Room Air 08/10/16 15:21 36.8 94 18 104/55 (71) 93 Room Air 08/10/16 14:23 81 16 95 Room Air 08/10/16 11:34 77 16 94 Room Air 08/10/16 09:28 93 Room Air 08/10/16 09:03 90 118/77 (91) 08/10/16 07:56 36.9 96 16 134/90 (105) 93 Room Air 08/10/16 07:40 Room Air 08/10/16 07:22 77 16 92 Nasal Cannula 2.0 08/10/16 05:23 36.7 94 20 138/84 Nasal Cannula 2.0 08/10/16 04:30 98 20 134/85 96 Room Air 08/10/16 04:28 97 08/10/16 02:42 82 18 116/72 96 Room Air 08/10/16 00:55 93 Room Air 08/10/16 00:52 77 08/10/16 00:48 87 Room Air 08/10/16 00:42 36.8 87 24 109/81 87 Room Air Lab Results: Results Past 24 Hours Test 08/10/16 01:00 08/10/16 01:13 08/10/16 01:27 08/10/16 01:28 Range/Units White Blood Count 16.56 4.8-10.8 K/uL Red Blood Count 4.77 4.2-5.4 M/uL Hemoglobin 14.3 12.0-16.0 g/dL Hematocrit 45.8 37-47 % Mean Corpuscular Volume 96.0 80-100 fL Mean Corpuscular Hemoglobin 30.0 25-34 pg Mean Corpuscular Hemoglobin Concent 31.2 32-36 g/dl Platelet Count 304 130-400 K/uL Mean Platelet Volume 10.9 7.4-10.4 fL Neutrophils (%) (Auto) 82.4 % Lymphocytes (%) (Auto) 11.1 % Monocytes (%) (Auto) 5.8 % Eosinophils (%) (Auto) 0.4 % Basophils (%) (Auto) 0.1 % Neutrophils # (Auto) 13.64 1.4-6.5 K/uL Lymphocytes # (Auto) 1.83 1.2-3.4 K/uL Monocytes # (Auto) 0.96 0.11-0.59 K/uL Eosinophils # (Auto) 0.07 0-0.5 K/uL Basophils # (Auto) 0.02 0-0.2 K/uL RDW Standard Deviation 51.6 36.4-46.3 fL RDW Coefficient of Variation 14.6 11.5-14.5 % Immature Granulocyte % (Auto) 0.2 % Immature Granulocyte # (Auto) 0.04 0.00-0.02 K/uL Sodium Level 138 136-145 mmol/L Potassium Level 4.4 3.5-5.1 mmol/L Chloride Level 102 98-107 mmol/L Carbon Dioxide Level 27 21-32 mmol/L Anion Gap 9.0 3-11 mmol/L Blood Urea Nitrogen 13 7-18 mg/dl Creatinine 0.97 0.60-1.20 mg/dl Est Creatinine Clear Calc Drug Dose 97.9 ml/min Estimated GFR () 75.7 Estimated GFR (Non- 65.3 BUN/Creatinine Ratio 13.3 10-20 Random Glucose 165 70-99 mg/dl Calcium Level 8.5 8.5-10.1 mg/dl Total Bilirubin 0.6 0.2-1 mg/dl Aspartate Amino Transf (AST/SGOT) 36 15-37 U/L Alanine Aminotransferase (ALT/SGPT) 32 12-78 U/L Alkaline Phosphatase 97 45-117 U/L Troponin I < 0.015 0-0.045 ng/ml Total Protein 7.0 6.4-8.2 gm/dl Albumin 3.0 3.4-5.0 gm/dl Globulin 4.0 2.5-4.0 gm/dl Albumin/Globulin Ratio 0.8 0.9-2 Procalcitonin < 0.05 0-0.5 ng/ml Bedside Lactic Acid Venous 2.89 0.90-1.70 mmol/L Bedside Troponin I < 0.030 0-0.045 ng/ml Venous Blood pH 7.48 7.36-7.41 Venous Blood Partial Pressure CO2 37 38.0-50.0 mmHg Venous Blood Partial Pressure O2 42 mmHg Venous Blood HCO3 27 mmol/L Venous Blood Oxygen Saturation 83.2 % Venous Blood Base Excess 3.4 mmol/L Test 08/10/16 01:43 08/10/16 06:56 08/10/16 07:53 08/10/16 11:58 Range/Units Urine Color ORANGE Urine Appearance CLOUDY CLEAR Urine pH 5.5 4.5-7.5 Urine Specific [place] 1.033 1.000-1.030 Urine Protein 1+ NEG Urine Glucose (UA) TRACE NEG Urine Ketones TRACE NEG Urine Occult Blood NEG NEG Urine Nitrite POS NEG Urine Bilirubin 1+ NEG Urine Urobilinogen NEG NEG Urine Leukocyte Esterase TRACE NEG Urine WBC (Auto) 10-30 0-5 /hpf Urine RBC (Auto) 0-4 0-4 /hpf Urine Hyaline Casts (Auto) 10-30 0-5 /lpf Urine Epithelial Cells (Auto) >30 0-5 /lpf Urine Bacteria (Auto) 1+ NEG Urine Crystals CALCIUM OXALATE NONE PRSENT Urine Pathogenic Casts 0 /lpf White Blood Count 15.08 4.8-10.8 K/uL Red Blood Count 4.55 4.2-5.4 M/uL Hemoglobin 14.1 12.0-16.0 g/dL Hematocrit 44.6 37-47 % Mean Corpuscular Volume 98.0 80-100 fL Mean Corpuscular Hemoglobin 31.0 25-34 pg Mean Corpuscular Hemoglobin Concent 31.6 32-36 g/dl RDW Standard Deviation 52.8 36.4-46.3 fL RDW Coefficient of Variation 14.7 11.5-14.5 % Platelet Count 257 130-400 K/uL Mean Platelet Volume 11.2 7.4-10.4 fL Prothrombin Time 10.9 9.0-12.0 SECONDS Prothromb Time International Ratio 1.0 0.9-1.1 Lactic Acid Level 2.5 0.4-2.0 mmol/L Bedside Glucose 231 214 70-90 mg/dl Test 08/10/16 14:50 Range/Units Lactic Acid Level 2.1 0.4-2.0 mmol/L Microbiology Results 08/10/16 Blood Culture, Received Pending 08/10/16 Blood Culture, Received Pending 08/10/16 Urine Culture, Received Pending
[2016-08-10] MEDS ORDERED: BISACODYL 5 MG TABEC PO SCH (17:30)
[2016-08-10] MEDS ORDERED: OPTIRAY 320 IV PRN (17:45)
[2016-08-10] MEDS ORDERED: PIPERACILL/TAZOBAC IV 3.375 GM in DEXTROSE 5% 100ML 100 ML IV SCH (18:00)
--- NOTE | 2016-08-10 18:15 | DIAGNOSTIC IMAGING REPORT ---
CT ABD/PELVIS IV CONTRAST ONLY CLINICAL HISTORY: Fever. Elevated lactic acid. Recent hernia surgery. COMPARISON STUDY: None. TECHNIQUE: Following the IV administration of 119 mL of Optiray-320, CT scan of the abdomen and pelvis was performed from the lung bases to the proximal femurs. Images are reviewed in the axial, sagittal, and coronal planes. IV contrast was administered without complication. CT DOSE: 1149.95 mGycm FINDINGS: Lower chest: There are bibasal atelectatic changes present. Liver: There is hepatic steatosis. No focal masses are visualized. The portal vein appears patent. The liver is enlarged measuring 25 cm. Gallbladder: Unremarkable. Spleen: Normal in size and attenuation. Pancreas: Unremarkable. Adrenal glands: There is mild adrenal gland thickening. Kidneys: There is symmetric renal cortical enhancement. The kidneys are normal in size without hydronephrosis. Bowel: There are no transition zones indicate bowel obstruction. There is no evidence of acute diverticulitis. The appendix is not visualized with certainty. There are no findings to indicate acute appendicitis. Peritoneum: There is no intraperitoneal free air or abdominal ascites. There are postsurgical changes involving the anterior abdominal wall. There is air and fluid present within the anterior abdominal wall, likely postsurgical. There is a tiny droplet of air posterior to the rectus sheath, also likely postsurgical. There is mild infiltration of the fat posterior to the right the sheath in the midline, likely postsurgical. Vasculature: The abdominal aorta is normal in course and caliber. Adenopathy: None. Pelvic viscera: The bladder, and pelvic viscera are unremarkable. Skeletal structures: No destructive osseous lesions are seen. IMPRESSION: 1. Small amount of gas and fluid within the anterior abdominal wall. Infiltration of the fat posterior to the rectus sheath in the midline with a small air bubble. Given the history of recent surgery, these findings are likely postoperative. 2. No evidence of bowel obstruction. No evidence of free air 3. No evidence of acute diverticulitis. No evidence of acute appendicitis 4. Hepatic steatosis. Hepatomegaly. Electronically signed by: Lorenzo Mays M.D. 08/10/2016 6:13 PM Dictated Date/Time: 08/10/2016 6:08 PM
[2016-08-10] MEDS: SENNA 8.6 MG TAB PO SCH (21:15)
[2016-08-10] MEDS: DOCUSATE SODIUM 100 MG CAP PO SCH (21:15)
[2016-08-10] MEDS: SIMVASTATIN 20 MG TAB PO SCH (21:16)
[2016-08-10] MEDS ORDERED: PIPERACILL/TAZOBAC IV 4.5 GM in DEXTROSE 5% 100ML IV SCH (22:00)
[2016-08-11] VITALS (7 sets, daily range): BP systolic 123–148; BP diastolic 81–84; PULSE 64–83; TEMP 36.7–36.9; O2SAT 91–97
[2016-08-11] MEDS: SODIUM CHLORIDE 0.9% 1000ML 1,000 ML IV SCH (03:35)
[2016-08-11] MEDS: PIPERACILL/TAZOBAC IV 4.5 GM in DEXTROSE 5% 100ML IV SCH ×3 (03:56→19:34)
[2016-08-11 06:16] LABS: MEAN CELL VOLUME 98.1 fL (80-100); MEAN CORPUSCULAR HEMOGLOBIN 31.1 pg (25-34); MEAN CORPUSCULAR HGB CONC 31.7 g/dl (32-36); MEAN PLATELET VOLUME 11.1 fL (7.4-10.4); PLATELET COUNT 260 K/uL (130-400); RED BLOOD COUNT 4.28 M/uL (4.2-5.4); WHITE BLOOD COUNT 12.94 K/uL (4.8-10.8)
[2016-08-11] MEDS: ALBUT/IPRATROP 3MG/0.5MG NEB 3 ML VIAL INH SCH ×4 (07:51→19:45)
--- NOTE | 2016-08-11 08:14 | Discharge Instructions ---
Discharge Instructions Date of Service Aug 11, 2016. Admission Reason for Admission: Fever, Uti Discharge Discharge Diagnosis / Problem: SEPSIS /UTI Discharge Goals Goal(s): Decrease discomfort, Diagnostic testing, Therapeutic intervention Activity Recommendations Activity Limitations: resume your previous activity . Instructions / Follow-Up Instructions / Follow-Up HOSPITAL FOLLOW UP ON Tuesday08/16/16 @ 9: [address] Clifford ZIMMERMAN MD [facility] POST SURGERY FOLLOW UP ON 08/25/2016 @ 1:[address] Hema Zavala MD General Surgery, [facility] LAB WORK : CBC ON Tuesday08/16/16 Current Hospital Diet Patient's current hospital diet: Diabetes Type 2 Diet Discharge Diet Recommended Diet: Diabetes Type 2 Diet Pending Studies Studies pending at discharge: yes List of pending studies: LAB WORK : CBC ON Tuesday08/16/16 Medical Emergencies . Who to Call and When: Medical Emergencies: If at any time you feel your situation is an emergency, please call 911 immediately. . Non-Emergent Contact Non-Emergency issues call your: Primary Care Provider . . "Provider Documentation" section prepared by Adelaide Duarte. . VTE Core Measure Inpt VTE Proph given/why not?: Unfractionated heparin SQ
--- NOTE | 2016-08-11 08:20 | Progress Note ---
Internal Med Progress Note Date of Service: Aug 11, 2016. Provider Documentation: SUBJECTIVE: had uneventful night no fever or chills minimum pain on surgical umbilical hernia site feels fine hoping to get discharged today able to pass gas no bowel movement yet OBJECTIVE: Vital Signs-as noted below Exam: General- no sign of distress Eyes-sclera non icteric Lungs-CTA Heart-regular S1/s2 Abdomen-soft, umbilical hernia repair site healing well , no drainage , minimum tenderness , bowel sound active Extremities-no lower ext edema Neuro-no focal neurological deficit Lab data as noted below. ASSESSMENT & PLAN: SEPSIS : possible due to Urinary Tract Infection met criteria on admission -fever /elevated lactic acid /leukocytosis UA grossly positive no evidence of infection in recent umbilical hernia repair Cxray shows no evidence of infection blood culture -no growth ; urine culture ordered -report pending Lactic acid level normalized 1.2 today Leukocytosis improved to 12 K D/c IV Abx changed to Zosyn : ID eval requested CT abdomen /pelvis : shows post surgical changes , no evidence of infection or post surgical complication Recent Umbilical Hernia Repair s/p Umbilical Hernia repair on Tuesday08/09/[address] Zavala wound looks fine, no erythema D/w Surgery Dr Zavala -pt is evaluated by him on the floor pt had very simple uncomplicated hernia repair Laparoscopically no evidence of infection or post op complication recommend to cont ABx for another 24 hrs till WBC normalizes CT abdomen /pelvis with contrast : IMPRESSION: 1. Small amount of gas and fluid within the anterior abdominal wall. Infiltration of the fat posterior to the rectus sheath in the midline with a small air bubble. Given the history of recent surgery, these findings are likely postoperative. 2. No evidence of bowel obstruction. No evidence of free air 3. No evidence of acute diverticulitis. No evidence of acute appendicitis 4. Hepatic steatosis. Hepatomegaly. Shortness of Breath/Hypoxia in the setting of Tobacco Use Disorder resolved , no symptom CXR - no infection noted no symptom at present DM2 hold oral agents-Metformin Ha1c = 6.5% monitor BSGs HTN blood pressure stable continue Norvasc DVT ppx subq heparin pt is asked to ambulate DISPOSITION possible Discharge home tomorrow Vital Signs: Date Time Temp Pulse Resp B/P (MAP) Pulse Ox O2 Delivery O2 Flow Rate FiO2 08/11/16 07:51 64 16 93 Room Air 08/11/16 07:25 36.7 64 16 123/84 (97) 93 Nasal Cannula 08/11/16 07:25 Room Air 08/10/16 23:30 Room Air 08/10/16 23:19 36.7 81 16 143/81 (101) 93 Room Air 08/10/16 19:12 80 16 95 Room Air 08/10/16 15:30 Room Air 08/10/16 15:21 36.8 94 18 104/55 (71) 93 Room Air 08/10/16 14:23 81 16 95 Room Air 08/10/16 11:34 77 16 94 Room Air 08/10/16 09:28 93 Room Air 08/10/16 09:03 90 118/77 (91) Lab Results: Results Past 24 Hours Test 08/10/16 11:58 08/10/16 14:50 08/10/16 17:03 08/10/16 20:38 Range/Units Bedside Glucose 214 156 173 70-90 mg/dl Lactic Acid Level 2.1 0.4-2.0 mmol/L Test 08/10/16 22:00 08/11/16 06:03 Range/Units Lactic Acid Level 2.2 1.2 0.4-2.0 mmol/L White Blood Count 12.94 4.8-10.8 K/uL Red Blood Count 4.28 4.2-5.4 M/uL Hemoglobin 13.3 12.0-16.0 g/dL Hematocrit 42.0 37-47 % Mean Corpuscular Volume 98.1 80-100 fL Mean Corpuscular Hemoglobin 31.1 25-34 pg Mean Corpuscular Hemoglobin Concent 31.7 32-36 g/dl RDW Standard Deviation 53.1 36.4-46.3 fL RDW Coefficient of Variation 14.8 11.5-14.5 % Platelet Count 260 130-400 K/uL Mean Platelet Volume 11.1 7.4-10.4 fL
[2016-08-11] MEDS: INSULIN ASPART 100 UNITS/ML 3 ML PEN SC SCH ×4 (08:57→21:16)
[2016-08-11] MEDS: AMLODIPINE BESYLATE 5 MG TAB PO SCH (08:58)
[2016-08-11] MEDS: HEPARIN SOD 5000 UNIT/0.5 ML CARP SQ SCH ×3 (08:58→23:53)
[2016-08-11] MEDS: DOCUSATE SODIUM 100 MG CAP PO SCH ×2 (08:58→21:09)
[2016-08-11] MEDS: POLYETHYLENE (MIRALAX) 17 GM PACK PO SCH (08:58)
--- NOTE | 2016-08-11 13:38 | Medical Consult ---
Consultation Date of Consultation: Aug 11, 2016. Attending Physician: Adelaide Duarte M.D. Reason for Consultation: Sepsis History of Present Illness Patient is a 56-year-old female with history of multiple back problems, diabetes mellitus type 2, and umbilical hernia repair on 08/09/2016. Following her umbilical hernia repair, the patient went home and went to bed, but she woke up with a fever later that night and presented to the emergency department for evaluation. The patient states that she was also experiencing a cough, shortness of breath, and abdominal pain prior to admission. Upon admission, the patient's white blood cell count was 16.56. Her lactic acid was 2.89. Throughout the day yesterday, her lactic acid continued to be above 2. Eight finally decreased today and was 1.2. She did have blood cultures drawn which are showing no growth. Her urine culture is showing no growth. Her urinalysis did show a 1+ bacteria, calcium oxalate crystals, positive nitrite, trace leukocyte esterase, and 10-30 white blood cells. She did have a chest x-ray completed which showed no acute process. An abdominal/pelvic CT scan showed a small amount of gas and fluid within the anterior abdominal wall along with infiltration of the fat posterior to the rectus sheath in the midline with a small air bubble, consistent with postoperative changes. She denies urinary symptoms, calf pain, or continued fever. The patient does continue to have abdominal tenderness of the mid epigastric and mid lower abdomen. She states that she does have history of urinary tract infection in the past, but has not had 1 recently. She is currently on IV Zosyn and feeling better. Past Medical/Surgical History Medical Problems: (1) Fever Status: Acute (2) Hypoxemia Status: Acute (3) SIRS (systemic inflammatory response syndrome) Status: Acute (4) UTI (urinary tract infection) Status: Acute Surgical Hx: Umbilical Hernia repair Family History Noncontributory Social History Smoking Status: Current Every Day Smoker Drug Use: none Marital Status: Housing Status: lives with family Allergies Coded Allergies: Naproxen (Verified Allergy, Severe, SEVERE HIVES,THROAT TIGHTENING, ) Erythromycin (Verified Allergy, Intermediate, HIVES, 08/10/16) Sulfa Antibiotics (Verified Allergy, Intermediate, RASH, 08/10/16) Home Medications Reported Home Medications Medications Dose Route/Sig Max Daily Dose Days Date Category Cranberry (Cranberry-Vitamin C-Vitamin E) 1 Cap Cap 1 Tab PO QPM 08/02/16 Reported Advil (Ibuprofen) 200 Mg Tab 800 Mg PO PRN 08/02/16 Reported Lasix (Furosemide) 20 Mg Tab 20 Mg PO PRN 08/02/16 Reported Meclizine Hcl 25 Mg Tab 1 Tab PO TID PRN 10 08/02/16 Reported Ventolin Hfa (Albuterol) 200 Puffs/13407 Mcg Aers 2-4 Puffs INH Q6H PRN 08/02/16 Reported Ativan (Lorazepam) 0.5 Mg Tab 0.5 Mg PO TID PRN 08/02/16 Reported Norvasc (Amlodipine Besylate) 5 Mg Tab 5 Mg PO QAM 08/02/16 Reported Hctz (Hydrochlorothiazide) 25 Mg Tab 25 Mg PO QAM 08/02/16 Reported Zocor (Simvastatin) 20 Mg Tab 20 Mg PO HS 08/02/16 Reported Glucophage (Metformin Hcl) 500 Mg Tab 500 Mg PO BID 08/02/16 Reported Current Inpatient Medications Current Inpatient Medications Medications (Trade) Dose Ordered Sig/Jess Route Start Time Stop Time Status Last Admin Dose Admin Heparin Sodium (Porcine) (Heparin Sq 5000 Unit/0.5ml) 5,000 unit Q8H SQ 08/10/16 08:00 09/09/16 07:59 08/11/16 08:58 5,000 UNIT Acetaminophen (Tylenol Tab) 650 mg Q4H PRN PO 08/10/16 03:45 09/09/16 03:44 Al Hydrox/Mg Hydrox/Simethicone (Maalox Max Susp) 15 ml Q4H PRN PO 08/10/16 03:45 09/09/16 03:44 Magnesium Hydroxide (Milk Of Magnesia Susp) 30 ml Q6H PRN PO 08/10/16 03:45 09/09/16 03:44 Ondansetron HCl (Zofran Inj) 4 mg Q6H PRN IV 08/10/16 03:45 09/09/16 03:44 Amlodipine Besylate (Norvasc Tab) 5 mg QAM PO 08/10/16 09:00 09/09/16 08:59 08/11/16 08:58 5 MG Ibuprofen (Advil Tab) 800 mg Q6H PRN PO 08/10/16 03:45 09/09/16 03:44 Lorazepam (Ativan Tab) 0.5 mg TID PRN PO 08/10/16 03:45 09/09/16 03:44 08/10/16 23:47 0.5 MG Simvastatin (Zocor Tab) 20 mg HS PO 08/10/16 21:00 09/09/16 20:59 08/10/16 21:16 20 MG Albuterol/ Ipratropium (Duoneb) 3 ml QIDR INH 08/10/16 08:00 09/09/16 07:59 08/11/16 11:16 3 ML Polyethylene (Miralax Powder Packet) 17 gm QAM PO 08/10/16 10:00 09/09/16 09:59 08/11/16 08:58 17 GM Insulin Aspart (novoLOG ASPART) SLIDING SCALE If C... ACHS SC 08/10/16 12:00 09/09/16 11:59 08/11/16 13:12 3 UNITS Glucose (Glucose 40% Gel) 15-30 GRAMS 15 GRAMS... UD PRN PO 08/10/16 09:00 09/09/16 08:59 Glucose (Glucose Chew Tab) 4-8 Tablets 4 Tabl... UD PRN PO 08/10/16 09:00 09/09/16 08:59 Dextrose (Dextrose 50% 50ML Syringe) 25-50ML OF 50% DW IV FOR... UD PRN IV 08/10/16 09:00 09/09/16 08:59 Glucagon (Glucagon Inj) 1 mg UD PRN SQ 08/10/16 09:00 09/09/16 08:59 Docusate Sodium (coLACE CAP) 100 mg BID PO 08/10/16 21:00 09/09/16 20:59 08/11/16 08:58 100 MG Piperacillin Sod/ Tazobactam Sod (Consult) 1 ea UD PRN N/A 08/10/16 17:00 09/09/16 16:59 Senna (Senokot Tab) 17.2 mg HS PO 08/10/16 21:00 09/09/16 20:59 08/10/16 21:15 17.2 MG Ioversol (Optiray 320) 125 ml UD PRN IV 08/10/16 17:45 08/14/16 17:44 Piperacillin Sod/ Tazobactam Sod 4.5 gm/Dextrose 120 ml @ 30 mls/hr Q8H IV 08/11/16 04:00 08/15/16 03:59 08/11/16 13:16 30 MLS/HR Review of Systems Constitutional: + fever, + sweats Eyes: No worsening of vision ENT: No hearing loss Respiratory: + cough, + shortness of breath Cardiovascular: No chest pain Abdomen: No pain, No nausea, No vomiting, No diarrhea Musculoskeletal: No joint pain, No muscle pain Genitourinary - Female: No dysuria, No urinary frequency, No urinary urgency Neurologic: No numbness/tingling Integumentary: No rash, No itch Physical Exam Date Time Temp Pulse Resp B/P (MAP) Pulse Ox O2 Delivery O2 Flow Rate FiO2 08/11/16 11:16 75 16 97 Room Air 08/11/16 07:51 64 16 93 Room Air 08/11/16 07:25 36.7 64 16 123/84 (97) 93 Nasal Cannula 08/11/16 07:25 Room Air 08/10/16 23:30 Room Air 08/10/16 23:19 36.7 81 16 143/81 (101) 93 Room Air 08/10/16 19:12 80 16 95 Room Air 08/10/16 15:30 Room Air 08/10/16 15:21 36.8 94 18 104/55 (71) 93 Room Air 08/10/16 14:23 81 16 95 Room Air General Appearance: no apparent distress, + obese Head: normocephalic, atraumatic Eyes: normal inspection, sclerae normal ENT: hearing grossly normal Neck: supple, trachea midline Respiratory/Chest: chest non-tender, lungs clear, no respiratory distress, no accessory muscle use, + decreased breath sounds (throughout) Cardiovascular: regular rate, rhythm Abdomen/GI: normal bowel sounds, + tenderness (mid-epigastric and lower mid abdomen. Bandage in place in suprapubic region where surgical incision is. ) Back: normal inspection Extremities/Musculoskelatal: normal inspection, normal range of motion Neurologic/Psych: alert, normal mood/affect Skin: normal color, warm/dry, no rash Laboratory Results Item Value Date Time Urine Culture - Preliminary Resulted 08/10/16 0143 Urine , Clean Catch NO GROWTH - LESS THAN 1,000 COLONIES/... Blood Culture - Preliminary Resulted 08/10/16 0128 Blood NO GROWTH TO DATE. Blood Culture - Preliminary Resulted 08/10/16 0100 Blood NO GROWTH TO DATE. CT ABD/PELVIS IV CONTRAST ONLY CLINICAL HISTORY: Fever. Elevated lactic acid. Recent hernia surgery. COMPARISON STUDY: None. TECHNIQUE: Following the IV administration of 119 mL of Optiray-320, CT scan of the abdomen and pelvis was performed from the lung bases to the proximal femurs. Images are reviewed in the axial, sagittal, and coronal planes. IV contrast was administered without complication. CT DOSE: 1149.95 mGycm FINDINGS: Lower chest: There are bibasal atelectatic changes present. Liver: There is hepatic steatosis. No focal masses are visualized. The portal vein appears patent. The liver is enlarged measuring 25 cm. Gallbladder: Unremarkable. Spleen: Normal in size and attenuation. Pancreas: Unremarkable. Adrenal glands: There is mild adrenal gland thickening. Kidneys: There is symmetric renal cortical enhancement. The kidneys are normal in size without hydronephrosis. Bowel: There are no transition zones indicate bowel obstruction. There is no evidence of acute diverticulitis. The appendix is not visualized with certainty. There are no findings to indicate acute appendicitis. Peritoneum: There is no intraperitoneal free air or abdominal ascites. There are postsurgical changes involving the anterior abdominal wall. There is air and fluid present within the anterior abdominal wall, likely postsurgical. There is a tiny droplet of air posterior to the rectus sheath, also likely postsurgical. There is mild infiltration of the fat posterior to the right the sheath in the midline, likely postsurgical. Vasculature: The abdominal aorta is normal in course and caliber. Adenopathy: None. Pelvic viscera: The bladder, and pelvic viscera are unremarkable. Skeletal structures: No destructive osseous lesions are seen. IMPRESSION: 1. Small amount of gas and fluid within the anterior abdominal wall. Infiltration of the fat posterior to the rectus sheath in the midline with a small air bubble. Given the history of recent surgery, these findings are likely postoperative. 2. No evidence of bowel obstruction. No evidence of free air 3. No evidence of acute diverticulitis. No evidence of acute appendicitis 4. Hepatic steatosis. Hepatomegaly. Last 24 Hours Test 08/10/16 14:50 08/10/16 17:03 08/10/16 20:38 08/10/16 22:00 Lactic Acid Level 2.1 mmol/L 2.2 mmol/L Bedside Glucose 156 mg/dl 173 mg/dl Test 08/11/16 06:03 08/11/16 08:13 08/11/16 12:11 White Blood Count 12.94 K/uL Red Blood Count 4.28 M/uL Hemoglobin 13.3 g/dL Hematocrit 42.0 % Mean Corpuscular Volume 98.1 fL Mean Corpuscular Hemoglobin 31.1 pg Mean Corpuscular Hemoglobin Concent 31.7 g/dl RDW Standard Deviation 53.1 fL RDW Coefficient of Variation 14.8 % Platelet Count 260 K/uL Mean Platelet Volume 11.1 fL Lactic Acid Level 1.2 mmol/L Bedside Glucose 131 mg/dl 102 mg/dl Assessment & Plan Patient with fever postoperatively S/P umbilical hernia repair. The patient's urinalysis was dirty, but urine culture is negative. Her chest x-ray showed no acute process. She did have some fatty infiltration and air bubbles in the abdomen were surgery was completed, but that could be strictly postoperative changes. She is currently on IV Zosyn and feeling better. It seems most likely that her fever was postoperative, but with elevated lactic acid and leukocytosis, it is also possible that she could have a mild infection surrounding her operative site verses atelectasis verses urinary tract infection. Because she is doing well on Zosyn, would recommend continuing this patient on p.o. Augmentin once medically cleared for discharge to complete 7 days. Case reviewed and agree iwth above assessment.
[2016-08-11] MEDS: SIMVASTATIN 20 MG TAB PO SCH (21:10)
[2016-08-11] MEDS: SENNA 8.6 MG TAB PO SCH (21:10)
[2016-08-12] MEDS: PIPERACILL/TAZOBAC IV 4.5 GM in DEXTROSE 5% 100ML IV SCH (03:39)
[2016-08-12 07:15] VITALS: BP 122/78; PULSE 82; TEMP 36.9; O2SAT 90
[2016-08-12 07:17] VITALS: PULSE 77; O2SAT 97
[2016-08-12] MEDS: ALBUT/IPRATROP 3MG/0.5MG NEB 3 ML VIAL INH SCH (07:17)
[2016-08-12 07:44] LABS: HEMATOCRIT 42.1 % (37-47); MEAN CELL VOLUME 96.8 fL (80-100); MEAN CORPUSCULAR HEMOGLOBIN 30.8 pg (25-34); MEAN CORPUSCULAR HGB CONC 31.8 g/dl (32-36); MEAN PLATELET VOLUME 11.3 fL (7.4-10.4); PLATELET COUNT 278 K/uL (130-400); RED BLOOD COUNT 4.35 M/uL (4.2-5.4); WHITE BLOOD COUNT 11.72 K/uL (4.8-10.8)
[2016-08-12] MEDS: HEPARIN SOD 5000 UNIT/0.5 ML CARP SQ SCH (08:00)
[2016-08-12] MEDS: INSULIN ASPART 100 UNITS/ML 3 ML PEN SC SCH (08:48)
[2016-08-12] MEDS: DOCUSATE SODIUM 100 MG CAP PO SCH (08:49)
[2016-08-12] MEDS: POLYETHYLENE (MIRALAX) 17 GM PACK PO SCH (08:49)
[2016-08-12] MEDS: AMLODIPINE BESYLATE 5 MG TAB PO SCH (08:50)
--- NOTE | 2016-08-12 10:30 | Infectious Disease Progress Nt ---
Progress Note Date of Service Aug 12, 2016. Subjective Pt evaluation today including: conversation w/ patient, physical exam, chart review, lab review, review of studies, review of inpatient medication list Patient is feeling much improved today. She has less SOB, and she has no cough this morning. She is walking around the [place] today. WBC count improved to 11.72 today. Urine culture showed no growth. No new images. All Other Systems: Reviewed and Negative Medications Current Inpatient Medications Medications (Trade) Dose Ordered Sig/Jess Route Start Time Stop Time Status Last Admin Dose Admin Heparin Sodium (Porcine) (Heparin Sq 5000 Unit/0.5ml) 5,000 unit Q8H SQ 08/10/16 08:00 09/09/16 07:59 08/11/16 23:53 5,000 UNIT Acetaminophen (Tylenol Tab) 650 mg Q4H PRN PO 08/10/16 03:45 09/09/16 03:44 Al Hydrox/Mg Hydrox/Simethicone (Maalox Max Susp) 15 ml Q4H PRN PO 08/10/16 03:45 09/09/16 03:44 Magnesium Hydroxide (Milk Of Magnesia Susp) 30 ml Q6H PRN PO 08/10/16 03:45 09/09/16 03:44 Ondansetron HCl (Zofran Inj) 4 mg Q6H PRN IV 08/10/16 03:45 09/09/16 03:44 Amlodipine Besylate (Norvasc Tab) 5 mg QAM PO 08/10/16 09:00 09/09/16 08:59 08/12/16 08:50 5 MG Ibuprofen (Advil Tab) 800 mg Q6H PRN PO 08/10/16 03:45 09/09/16 03:44 Lorazepam (Ativan Tab) 0.5 mg TID PRN PO 08/10/16 03:45 09/09/16 03:44 08/10/16 23:47 0.5 MG Simvastatin (Zocor Tab) 20 mg HS PO 08/10/16 21:00 09/09/16 20:59 08/11/16 21:10 20 MG Albuterol/ Ipratropium (Duoneb) 3 ml QIDR INH 08/10/16 08:00 09/09/16 07:59 08/12/16 07:17 3 ML Polyethylene (Miralax Powder Packet) 17 gm QAM PO 08/10/16 10:00 09/09/16 09:59 08/11/16 08:58 17 GM Insulin Aspart (novoLOG ASPART) SLIDING SCALE If C... ACHS SC 08/10/16 12:00 09/09/16 11:59 08/12/16 08:48 1 UNITS Glucose (Glucose 40% Gel) 15-30 GRAMS 15 GRAMS... UD PRN PO 08/10/16 09:00 09/09/16 08:59 Glucose (Glucose Chew Tab) 4-8 Tablets 4 Tabl... UD PRN PO 08/10/16 09:00 09/09/16 08:59 Dextrose (Dextrose 50% 50ML Syringe) 25-50ML OF 50% DW IV FOR... UD PRN IV 08/10/16 09:00 09/09/16 08:59 Glucagon (Glucagon Inj) 1 mg UD PRN SQ 08/10/16 09:00 09/09/16 08:59 Docusate Sodium (coLACE CAP) 100 mg BID PO 08/10/16 21:00 09/09/16 20:59 08/11/16 21:09 100 MG Senna (Senokot Tab) 17.2 mg HS PO 08/10/16 21:00 09/09/16 20:59 08/11/16 21:10 17.2 MG Ioversol (Optiray 320) 125 ml UD PRN IV 08/10/16 17:45 08/14/16 17:44 Objective Vital Signs Date Time Temp Pulse Resp B/P (MAP) Pulse Ox O2 Delivery O2 Flow Rate FiO2 08/12/16 07:35 Room Air 08/12/16 07:17 77 16 97 Room Air 08/12/16 07:15 36.9 82 16 122/78 (93) 90 Room Air 08/11/16 23:25 36.9 78 16 148/81 (103) 95 Room Air 08/11/16 19:50 Room Air 08/11/16 19:46 82 16 95 Room Air 08/11/16 15:38 36.7 82 18 139/81 (100) 95 Room Air 08/11/16 15:22 83 16 91 Room Air 08/11/16 11:16 75 16 97 Room Air Physical Exam General Appearance: no apparent distress, + obese Eyes: normal inspection, sclerae normal ENT: hearing grossly normal Neck: supple, trachea midline Respiratory/Chest: no respiratory distress, no accessory muscle use Cardiovascular: regular rate, rhythm Extremities: normal range of motion, normal inspection Neurologic/Psychiatric: alert, normal mood/affect Skin: normal color, warm/dry, no rash Laboratory Results Item Value Date Time Urine Culture - Preliminary Resulted 08/10/16 0143 Urine , Clean Catch NO GROWTH - LESS THAN 1,000 COLONIES/... Last 24 Hours Test 08/11/16 12:11 08/11/16 17:16 08/11/16 21:11 08/12/16 07:16 Bedside Glucose 102 mg/dl 95 mg/dl 172 mg/dl White Blood Count 11.72 K/uL Red Blood Count 4.35 M/uL Hemoglobin 13.4 g/dL Hematocrit 42.1 % Mean Corpuscular Volume 96.8 fL Mean Corpuscular Hemoglobin 30.8 pg Mean Corpuscular Hemoglobin Concent 31.8 g/dl RDW Standard Deviation 52.6 fL RDW Coefficient of Variation 14.7 % Platelet Count 278 K/uL Mean Platelet Volume 11.3 fL Test 08/12/16 08:00 Bedside Glucose 131 mg/dl Assessment and Plan Patient with fever postoperatively S/P umbilical hernia repair. Patient's fever has resolved, and she is feeling better. She is currently on IV Zosyn. Will D/C IV abx and transition to PO Augmentin 875 mg BID x 7 days. Source is unclear of fever, but will empirically cover her for questionable UTI versus mild post- operative infection. Otherwise, she is OK for D/C from ID perspective. Thank you. Case reviewed and agree with above assessment.
[2016-08-12] MEDS ORDERED: AMOX1TAB43 PO (10:37)
[2016-08-12 10:40] VITALS: BP 122/78; PULSE 77; TEMP 36.9; O2SAT 97
--- NOTE | 2016-08-12 10:44 | Progress Note ---
Internal Med Progress Note Date of Service: Aug 12, 2016. Provider Documentation: SUBJECTIVE: feels fine , able to walk in hallway no fever or chills eager to go home today OBJECTIVE: Vital Signs-as noted below Exam: General- no sign of distress Eyes-sclera non icteric Lungs-CTA Heart-regular S1/s2 Abdomen-soft, umbilical hernia repair site healing well , no drainage , minimum tenderness , bowel sound active Extremities-no lower ext edema Neuro-no focal neurological deficit Lab data as noted below. ASSESSMENT & PLAN: SEPSIS : resolved possible Urinary Tract Infection/associated with mild local inflammation / infection around umbilical hernia repair met criteria on admission -fever /elevated lactic acid /leukocytosis UA grossly positive no evidence of infection in recent umbilical hernia repair Cxray shows no evidence of infection blood culture -no growth ; urine culture-no growth Lactic acid level normalized with IV fluids Leukocytosis improved to 12 K -> 11K CT abdomen /pelvis : shows post surgical changes , no evidence of infection or post surgical complication appreciate input form ID Abx changed to PO Augmentin complete total 7 days course stable to be discharged home today Recent Umbilical Hernia Repair s/p Umbilical Hernia repair on Tuesday08/09/[address] Zavala wound looks fine, no erythema D/w Surgery Dr Zavala -pt is evaluated by him on the floor pt had very simple uncomplicated hernia repair Laparoscopically CT abdomen /pelvis with contrast : IMPRESSION: 1. Small amount of gas and fluid within the anterior abdominal wall. Infiltration of the fat posterior to the rectus sheath in the midline with a small air bubble. Given the history of recent surgery, these findings are likely postoperative. 2. No evidence of bowel obstruction. No evidence of free air 3. No evidence of acute diverticulitis. No evidence of acute appendicitis 4. Hepatic steatosis. Hepatomegaly. stable to be discharged home today PO Augmentin to complete 7 days course has post surgery follow up with Dr Zavala on 08/25/16 DM2 resumed Metformin on discharge Ha1c = 6.5% monitor BSGs HTN blood pressure stable continue Norvasc DVT ppx subq heparin pt is asked to ambulate DISPOSITION Discharge home today Vital Signs: Date Time Temp Pulse Resp B/P (MAP) Pulse Ox O2 Delivery O2 Flow Rate FiO2 08/12/16 07:35 Room Air 08/12/16 07:17 77 16 97 Room Air 08/12/16 07:15 36.9 82 16 122/78 (93) 90 Room Air 08/11/16 23:25 36.9 78 16 148/81 (103) 95 Room Air 08/11/16 19:50 Room Air 08/11/16 19:46 82 16 95 Room Air 08/11/16 15:38 36.7 82 18 139/81 (100) 95 Room Air 08/11/16 15:22 83 16 91 Room Air 08/11/16 11:16 75 16 97 Room Air Lab Results: Results Past 24 Hours Test 08/11/16 12:11 08/11/16 17:16 08/11/16 21:11 08/12/16 07:16 Range/Units Bedside Glucose 102 95 172 70-90 mg/dl White Blood Count 11.72 4.8-10.8 K/uL Red Blood Count 4.35 4.2-5.4 M/uL Hemoglobin 13.4 12.0-16.0 g/dL Hematocrit 42.1 37-47 % Mean Corpuscular Volume 96.8 80-100 fL Mean Corpuscular Hemoglobin 30.8 25-34 pg Mean Corpuscular Hemoglobin Concent 31.8 32-36 g/dl RDW Standard Deviation 52.6 36.4-46.3 fL RDW Coefficient of Variation 14.7 11.5-14.5 % Platelet Count 278 130-400 K/uL Mean Platelet Volume 11.3 7.4-10.4 fL Test 08/12/16 08:00 Range/Units Bedside Glucose 131 70-90 mg/dl
--- NOTE | 2016-08-12 10:46 | Discharge Summary ---
Discharge Summary Date of Service Aug 12, 2016. Discharge Summary Admission Date: Aug 10, 2016 at 03:45 Discharge Date: Aug 12, 2016 Discharge Disposition: Home Principal Diagnosis: SEPSIS /UTI Procedures: CT ABDOMEN /PELVIS IMPRESSION: 1. Small amount of gas and fluid within the anterior abdominal wall. Infiltration of the fat posterior to the rectus sheath in the midline with a small air bubble. Given the history of recent surgery, these findings are likely postoperative. 2. No evidence of bowel obstruction. No evidence of free air 3. No evidence of acute diverticulitis. No evidence of acute appendicitis 4. Hepatic steatosis. Hepatomegaly. Consultations: ID Medication Reconciliation New Medications: Amoxicillin & Pot Clavulanate (Amoxicillin/Clavulanate P) 1 Tab Tab 875 MG PO BIDM for 4 Days, #8 TAB Continued Medications: Albuterol Hfa (Ventolin Hfa) 200 Puffs/87565 Mcg Aers 2-4 PUFFS INH Q6H PRN for PRN, #1 INHALER Amlodipine (Norvasc) 5 Mg Tab 5 MG PO QAM, TAB Cranberry-Vitamin C-Vitamin E (Cranberry) 1 Cap Cap 1 TAB PO QPM Furosemide (Lasix) 20 Mg Tab 20 MG PO PRN, TAB Hydrochlorothiazide (Hctz) 25 Mg Tab 25 MG PO QAM, TAB Ibuprofen (Advil) 200 Mg Tab 800 MG PO PRN, TAB Lorazepam (Ativan) 0.5 Mg Tab 0.5 MG PO TID PRN for PRN, TAB Meclizine Hcl (Meclizine Hcl) 25 Mg Tab 1 TAB PO TID PRN for RN for 10 Days, #30 TAB Metformin Hcl (Glucophage) 500 Mg Tab 500 MG PO BID, TAB Simvastatin (Zocor) 20 Mg Tab 20 MG PO HS, TAB Referrals At Discharge Follow up Referrals: Physician Referral - 08/16/16 with Dez Corrales Surgery Referral - 08/25/16 with Hema Zavala M.D. Admission Information HPI (per Admitting provider): This is a 56 year old female with a PMH of DM2, tobacco use disorder, HTN, HLD - was in the hospital for day surgery for an inguinal hernia repair on August 09 - she went home, took some Percocet, went to sleep, when she woke up in the afternoon/evening time, she felt chills. States she became really short of breath and could not take a deep breath in, so she presented to the ER. Denies nausea/vomiting. Denies chest pain; denies leg pain. Denies palpitations. On presentation, labs performed showing high white count; CXR - no acute findings; UA dirty - was given IVFs, antibiotics, and nebulizers and she felt better. Physical Exam (per Admitting): General Appearance: no apparent distress, + obese Head: normocephalic, atraumatic Eyes: normal inspection ENT: hearing grossly normal Respiratory/Chest: chest non-tender, lungs clear, normal breath sounds, no respiratory distress, no accessory muscle use Cardiovascular: regular rate, rhythm, no edema, no gallop, no JVD, no murmur , normal peripheral pulses Abdomen/GI: normal bowel sounds, soft, + tenderness Extremities/Musculoskelatal: normal capillary refill, no pedal edema Neurologic/Psych: no motor/sensory deficits, alert, normal mood/affect Skin: normal color Lymphatic: no adenopathy Hospital Course SEPSIS : resolved possible Urinary Tract Infection/associated with mild local inflammation / infection around umbilical hernia repair met criteria on admission -fever /elevated lactic acid /leukocytosis UA grossly positive no evidence of infection in recent umbilical hernia repair Cxray shows no evidence of infection blood culture -no growth ; urine culture-no growth Lactic acid level normalized with IV fluids Leukocytosis improved to 12 K -> 11K CT abdomen /pelvis : shows post surgical changes , no evidence of infection or post surgical complication appreciate input form ID Abx changed to PO Augmentin complete total 7 days course stable to be discharged home today Recent Umbilical Hernia Repair s/p Umbilical Hernia repair on Tuesday08/09/[address] Zavala wound looks fine, no erythema D/w Surgery Dr Zavala -pt is evaluated by him on the floor pt had very simple uncomplicated hernia repair Laparoscopically CT abdomen /pelvis with contrast : IMPRESSION: 1. Small amount of gas and fluid within the anterior abdominal wall. Infiltration of the fat posterior to the rectus sheath in the midline with a small air bubble. Given the history of recent surgery, these findings are likely postoperative. 2. No evidence of bowel obstruction. No evidence of free air 3. No evidence of acute diverticulitis. No evidence of acute appendicitis 4. Hepatic steatosis. Hepatomegaly. stable to be discharged home today PO Augmentin to complete 7 days course has post surgery follow up with Dr Zavala on 08/25/16 DM2 resumed Metformin on discharge Ha1c = 6.5% monitor BSGs HTN blood pressure stable continue Norvasc DVT ppx subq heparin pt is asked to ambulate DISPOSITION Discharge home today Total time spent on discharge = 35 MINS This includes examination of the patient, discharge planning, medication reconciliation, and communication with other providers. Discharge Instructions DI: Medical v4 Discharge Instructions Date of Service Aug 11, 2016. Admission Reason for Admission: Fever, Uti Discharge Discharge Diagnosis / Problem: SEPSIS /UTI Discharge Goals Goal(s): Decrease discomfort, Diagnostic testing, Therapeutic intervention Activity Recommendations Activity Limitations: resume your previous activity . Instructions / Follow-Up Instructions / Follow-Up HOSPITAL FOLLOW UP ON Tuesday08/16/16 @ 9: [address] Clifford ZIMMERMAN MD [facility] POST SURGERY FOLLOW UP ON 08/25/2016 @ 1:[address] Hema Zavala MD General Surgery, [facility] LAB WORK : CBC ON Tuesday08/16/16 Current Hospital Diet Patient's current hospital diet: Diabetes Type 2 Diet Discharge Diet Recommended Diet: Diabetes Type 2 Diet Pending Studies Studies pending at discharge: yes List of pending studies: LAB WORK : CBC ON Tuesday08/16/16 Medical Emergencies . Who to Call and When: Medical Emergencies: If at any time you feel your situation is an emergency, please call 911 immediately. . Non-Emergent Contact Non-Emergency issues call your: Primary Care Provider . . "Provider Documentation" section prepared by Adelaide Duarte. . VTE Core Measure Inpt VTE Proph given/why not?: Unfractionated heparin SQ Additional Copies To Hema Zavala M.D. DEITRICH, HENRY
[2016-08-12] MEDS ORDERED: AMOXICILLIN/CLAVULANATE TAB 875 MG TAB PO SCH (12:00)
== END 2016-08-12 11:00 | disposition home or self-care (01) | DRG 872 ==
LOC: EDBD 00:42 → C.EDB 00:43 → C.3E 03:45 → ENRESERV 04:19
PROVIDERS: ADMIT Family Medicine; ATTEND Hospitalist
DX: A41.9 Sepsis, unspecified organism (principal); N39.0 Urinary tract infection, site not specified; Z68.42 Body mass index [BMI] 45.0-49.9, adult; R09.02 Hypoxemia; R06.02 Shortness of breath; I10 Essential (primary) hypertension; E11.9 Type 2 diabetes mellitus without complications; E78.5 Hyperlipidemia, unspecified; F17.210 Nicotine dependence, cigarettes, uncomplicated; E66.9 Obesity, unspecified; Z98.890 Other specified postprocedural states; Z79.84 Long term (current) use of oral hypoglycemic drugs; Z79.899 Other long term (current) drug therapy